=== PATIENT | female | born 1970 | race Caucasian/White ===

== ENCOUNTER 2020-06-11 11:05 | Emergency (ER) | payer MEDICAID, OTHER ==
[~2020-06-11] VITALS: Ht 154.9 cm; Wt 94.8 kg
[~2020-06-11 11:05] MED LIST: ATEN-166 PO; AZIT500T3 PO
[2020-06-11 11:14] VITALS: BP_SYST 162
--- NOTE | 2020-06-11 11:16 | NUR ---
Patient triaged and placed in waiting room. VSS and patient appears in no acute distress at this time. Accompanied by self , awaiting available bed, and MD notified of need for MSE.
--- NOTE | 2020-06-11 11:18 | NUR ---
Pt brought by self, A&Ox4, pt presents to ER with headache and tingling of extremities, skin pink and warm, cap refill <3, VSS, respirations even and unlabored.
--- NOTE | 2020-06-11 11:20 | NUR ---
Dr Caro evaluating patient in the triage room
--- NOTE | 2020-06-11 11:54 | NUR ---
Patient given written and verbal discharge instructions and verbalizes understanding. ER MD discussed with patient the results and treatment provided. Patient in stable condition. ID arm band removed. Rx of Motrin given. Patient educated on pain management and to follow up with PMD. Pain Scale 3/10. Opportunity for questions provided and answered. Medication side effect fact sheet provided.
== END 2020-06-11 11:54 | disposition home or self-care (01) ==
LOC: SED 11:05
DX: R42 Dizziness and giddiness (principal); R51.9 Headache, unspecified; I10 Essential (primary) hypertension; E11.9 Type 2 diabetes mellitus without complications; E07.9 Disorder of thyroid, unspecified
CPT/HCPCS: 81002; 99282